=== PATIENT | male | born 1980 | race Caucasian/White ===

== ENCOUNTER 2018-10-09 11:05 | Inpatient (IN) | payer MEDICAID, OTHER ==
[~2018-10-09] VITALS: Ht 182.9 cm; Wt 88.2 kg
--- NOTE | 2018-10-09 11:36 | ERD ---
ER Documentation Chief Complaint Chief Complaint LOWER ABD PAIN WITH DIARRHEA NO BLOOD. VOMITING WITH NO BLOOD. HPI 38-year-old male with a history of hypertension and hyperthyroidism but noncompliant with medications resents presents to the ED complaining of a 1 day history of crampy, generalized, nonradiating abdominal pain with nausea and multiple episodes of watery, nonbloody, non-mucoid diarrhea. No hematemesis, hematochezia or melena. Denies chest pain or shortness of breath. No fevers or chills. Patient attributes his symptoms to something he ate last night but no other diners are ill. No recent travel or ill contacts. Patient complains of several month history of weight loss with intermittent palpitations, exertional dyspnea, malaise, heat intolerance and generalized weakness. ROS All systems reviewed and are negative except as per history of present illness. Medications Home Meds No Active Prescriptions or Reported Meds Allergies Allergies: Coded Allergies: No Known Allergy (Unverified , 10/09/18) PMhx/Soc History of Surgery: No Anesthesia Reaction: No Hx Neurological Disorder: No Hx Respiratory Disorders: No Hx Cardiac Disorders: Yes (Blood Pressure Assessment: Patient's blood pressure was elevated (>120/80) but appears stable without evidence of hypertension emergency or urgency. The patient was counseled about the risks of hypertension and urged to pursue outpatient monitoring and therapy within a week with their primary care physician.) Hx Psychiatric Problems: No Hx Miscellaneous Medical Probl: Yes (Hyperthyroidism) Hx Alcohol Use: Yes (6 pack/week) Hx Substance Use: No Hx Tobacco Use: No FmHx Diabetes and hypertension. No coronary artery disease or stroke Physical Exam Vitals Vital Signs Date Temp Pulse Resp B/P (MAP) Pulse Ox O2 O2 Flow FiO2 Time Delivery Rate 10/09/18 98.3 100 20 129/86 99 Room Air 16:33 (100) 10/09/18 97.9 126 20 132/74 99 Room Air 15:08 (93) 10/09/18 98.3 127 20 140/78 99 Room Air 12:55 (98) 10/09/18 99.9 145 24 149/100 99 11:08 (116) Physical Exam Const: Moderate distress. Head: Atraumatic Eyes: Normal Conjunctiva. Anicteric. ENT: Normal External Ears, Nose and Mouth. Neck: Full range of motion. No JVD. Pulsatile thyroid. Resp: Breath sounds are equal and clear to auscultation bilaterally Cardio: Tachycardic. Regular rate and rhythm, no murmurs Abd: Soft, mild, diffuse lower abdominal tenderness but no rebound or guarding. Non distended. Normal bowel sounds Skin: No petechiae or rashes Back: No midline or flank tenderness Ext: No cyanosis, or edema Neur: Awake and alert. No focal deficit. No tremors. Psych: Anxious but not depressed. Result Diagram: 10/09/18 1240 10/09/18 1240 Results 24 hrs Laboratory Tests Test 10/09/18 12:40 White Blood Count 13.1 10^3/ul Red Blood Count 5.23 10^6/ul Hemoglobin 13.9 g/dl Hematocrit 42.2 % Mean Corpuscular Volume 80.7 fl Mean Corpuscular Hemoglobin 26.6 pg Mean Corpuscular Hemoglobin Concent 32.9 g/dl Red Cell Distribution Width 13.2 % Platelet Count 332 10^3/UL Mean Platelet Volume 9.1 fl Immature Granulocytes % 0.500 % Neutrophils % 86.6 % Lymphocytes % 5.0 % Monocytes % 7.6 % Eosinophils % 0.0 % Basophils % 0.3 % Nucleated Red Blood Cells % 0.0 /100WBC Immature Granulocytes # 0.070 10^3/ul Neutrophils # 11.4 10^3/ul Lymphocytes # 0.7 10^3/ul Monocytes # 1.0 10^3/ul Eosinophils # 0.0 10^3/ul Basophils # 0.0 10^3/ul Nucleated Red Blood Cells # 0.0 10^3/ul Urine Color YELLOW Urine Clarity CLEAR Urine pH 7.0 Urine Specific [place] 1.021 Urine Ketones TRACE mg/dL Urine Nitrite NEGATIVE mg/dL Urine Bilirubin NEGATIVE mg/dL Urine Urobilinogen NEGATIVE mg/dL Urine Leukocyte Esterase NEGATIVE Simon/ul Urine Hemoglobin 1+ mg/dL Urine Glucose NEGATIVE mg/dL Urine Total Protein NEGATIVE mg/dl Sodium Level 143 mmol/L Potassium Level 3.8 mmol/L Chloride Level 104 mmol/L Carbon Dioxide Level 26 mmol/L Anion Gap 13 Blood Urea Nitrogen 17 mg/dl Creatinine 0.57 mg/dl Est Glomerular Filtrat Rate mL/min > 60 mL/min Glucose Level 116 mg/dl Calcium Level 10.4 mg/dl Total Bilirubin 0.8 mg/dl Direct Bilirubin 0.00 mg/dl Indirect Bilirubin 0.8 mg/dl Aspartate Amino Transf (AST/SGOT) 22 IU/L Alanine Aminotransferase (ALT/SGPT) 23 IU/L Alkaline Phosphatase 155 IU/L Total Protein 7.5 g/dl Albumin 4.3 g/dl Globulin 3.20 g/dl Albumin/Globulin Ratio 1.34 Lipase 41 U/L Thyroid Stimulating Hormone (TSH) < 0.015 MIU/L Free Thyroxine 6.33 ng/dl Urine Opiates Screen Positive Urine Barbiturates Negative Urine Amphetamines Screen Negative Urine Benzodiazepines Screen Negative Urine Cocaine Screen Negative Urine Cannabinoids Negative Current Medications Medications Dose Sig/Art Start Time Status Last (Trade) Ordered Route PRN Stop Time Admin Dose Reason Admin Morphine 4 mg ONCE STAT 10/09/18 DC 10/09/18 Sulfate IV 12:23 12:49 (morphine) 10/09/18 12:27 Ondansetron 4 mg ONCE STAT 10/09/18 DC 10/09/18 HCl (Zofran IV 12:23 12:49 Inj) 10/09/18 12:27 Lactated 1,000 ml @ Q1H ONCE 10/09/18 DC 10/09/18 Ringer's 1,000 mls/hr IV 12:30 12:49 10/09/18 13:29 IV Flush 10 ml STK-MED 10/09/18 DC 10/09/18 (NS 10 ml) ONCE .ROUTE 13:36 13:54 10/09/18 13:37 Sodium 100 ml @ ud STK-MED 10/09/18 DC 10/09/18 Chloride ONCE .ROUTE 13:36 13:54 10/09/18 13:37 Iohexol 150 ml STK-MED 10/09/18 DC 10/09/18 (Omnipaque ONCE .ROUTE 13:36 13:55 300mg/ ml) 10/09/18 13:37 Propranolol 40 mg ONCE ONCE 10/09/18 DC 10/09/18 HCl PO 15:00 15:15 (Inderal) 10/09/18 15:01 Ondansetron 4 mg ER BRIDGE 10/09/18 DC HCl (Zofran PRN IV 15:30 Inj) NAUSEA/VOMITI 10/09/18 15:38 NG 650 mg ER BRIDGE 10/09/18 DC Acetaminophen PRN PO 15:30 (Tylenol .MILD PAIN 10/09/18 15:38 Tab) 1-3 OR TEMP Ondansetron 4 mg Q6H PRN 10/09/18 HCl (Zofran IV 15:30 Inj) NAUSEA/VOMITI NG 650 mg Q6H PRN 10/09/18 Acetaminophen PO .PAIN 1-3 15:30 (Tylenol OR TEMP Tab) Sodium 1,000 ml @ Q1H ONCE 10/09/18 DC 10/09/18 Chloride 1,000 mls/hr IV 15:30 15:45 10/09/18 16:29 Methimazole 10 mg TID PO 10/09/18 10/09/18 (Tapazole) 16:00 21:12 Loperamide 2 mg QID PRN 10/09/18 10/09/18 HCl PO DIARRHEA 16:00 18:18 (Imodium Cap) Procedures/MDM DOCUMENTS REVIEWED: ED nurse, no prior records EKG: Time: 11:20. Sinus tachycardia. Ventricular rate 122. Normal NH QRS. LVH. Nonspecific T wave changes but no acute ST segment elevation or depres jai. No ectopy. My Interpretation IMAGING: PROCEDURE: CT abdomen and pelvis with contrast. CLINICAL INDICATION: Lower abdominal pain. Diarrhea. TECHNIQUE: CT scan of the abdomen and pelvis without contrast was performed and is reconstructed at 2.5 mm contiguous axial intervals from the dome of the diaphragm to the inferior pubic rami.. The patient was scanned without intravenous contrast. Sagittal and coronal reformatted images were obtained from the axial source images. The calculated radiation dose measures 615 mGy centimeters. The CTDI measures 9.4 mGy. Individualized dose optimization technique was used for the performance of this exam. This included 1. Automated exposure control. 2. Adjustment of the mA and / or kV according to the patient's size. 3. Use of iterative reconstructed technique. COMPARISON: None. FINDINGS: The lung bases are clear of any infiltrate or nodule. No effusion is seen. The liver is of normal size and contour with no mass or ductal dilatation. No gallstones are visualized. No splenic, adrenal or pancreatic abnormalities present. Kidneys enhance symmetrically and are of normal size and contour. No hydro nephrosis, calculus or solid masses seen. Noted is a 1 cm cyst on the lower pole of the left kidney. Ureters are of normal course and caliber with no stone. No bladder mass or stone is present. Prostate and seminal vesicles are normal. There is no aneurysm. No adenopathy is present. No bowel mass or obstruction is present. The appendix is normal. No phlegmon, ascites or pneumoperitoneum is visualized. The osseous structures are intact. IMPRESSION: No evidence of urolithiasis, obstructive uropathy, diverticulitis or appendicitis. Fatty liver. Left renal cyst. No further workup required. .Shay Nuno MD, MD Date Time Electronically viewed and signed by .Shay Nuno MD, on 10/09/2018 14:20 .A/ [employer]KIN-year-old male with a history of hypertension and hyperthyroidism but noncompliant with medications sent to the ED complaining of a 1 day history of crampy, generalized, now rating abdominal pain with nausea and multiple episodes of watery, nonbloody, non-mucoid diarrhea. Chemistry reveals mild leukocytosis but no anemia or thrombocytopenia. Chemistry negative for renal insufficiency, electrolyte abnormalities or hyperglycemia. Urinalysis is unremarkable. CT of the abdomen and pelvis with intravenous contrast pe rformed to evaluate for appendicitis, diverticulitis, abdominal aortic aneurysm, bowel obstruction, mass, obstructive uropathy and colitis reveals fatty liver and renal cyst but otherwise unremarkable for acute disease. EKG reveals sinus tachycardia but no ischemia or dysrhythmia. TSH is undetectable and free T4 is elevated consistent with hyperthyroidism. Abdominal exam is essentially benign without rebound, guarding or signs of peritonitis. Patient presents with signs and symptoms consistent with acute hyperthyroidism but no altered mental status or signs of thyroid storm. Treated with beta-blockers. Although gastroenteritis is considered patient's symptoms are likely secondary to h yperthyroidism. Admit to telemetry for further evaluation and management. CALLS/CONSULTS: Time: 14:54, Dr. Dr Jeff. Counseled patient and family regarding diagnosis, diagnostic results and plan for admission. Departure Diagnosis: Primary Impression: Acute generalized abdominal pain Additional Impressions: Hyperthyroidism Diarrhea Diarrhea type: unspecified type Qualified Codes: R19.7 - Diarrhea, unspecified Tachycardia Condition: Serious TAMMY,ELOY B. MD Oct 09, 2018 11:36
[2018-10-09] MEDS ORDERED: ONDANSETRON 4 MG INJ IV STA (12:23)
[2018-10-09] MEDS ORDERED: morphine 4 MG/ML VIAL IV STA (12:23)
[2018-10-09] MEDS ORDERED: LACTATED RINGER'S 1,000 ML IV ONE (12:30)
[2018-10-09] MEDS ORDERED: IOHEXOL 300MG/ML 150 ML BTL ONE (13:36)
[2018-10-09] MEDS ORDERED: SOD CHLORIDE 0.9% 100 ML ONE (13:36)
[2018-10-09] MEDS ORDERED: PROPRANOLOL 40 MG TAB PO ONE (15:00)
[2018-10-09] MEDS ORDERED: SOD CHLORIDE 0.9% 1,000 ML IV ONE (15:30)
[2018-10-09] MEDS ORDERED: ACETAMINOPHEN 325 MG TAB PO PRN ×2 (15:30)
[2018-10-09] MEDS ORDERED: ONDANSETRON 4 MG INJ IV PRN ×2 (15:30)
--- NOTE | 2018-10-09 15:59 | HP ---
Date/Time of Note Date/Time of Note DATE: 10/09/18 TIME: 15:36 Assessment/Plan VTE Prophylaxis SCD applied (from Nsg): Yes Pharmacological prophylaxis: NA/contraindicated Pharm contraindication: low risk/ambulating Lines/Catheters IV Catheter Type (from Nrsg): Saline Lock Assessment/Plan Assessment/Plan 38 yo man history of hyperthyroid presents with hyperthyroidism, diarrhea and vomiting. #Hyperthyroidism - Likely contributing to most of his symptoms. May have been decompensated by viral enterocolitis. - Likely Graves disease per history and exam, but no exophthalmos. Will check anti-TSH antibodies and thyroid US - Propranolol 40 BID, methimazole - On my exam appears hypovolemic even after LR bolus; will continue IV fluids. - Consulted Dr. Burt #Diarrhea #Vomiting - No recent hospitalizations or antibiotics, not immunosuppressed. No concern for C diff - Per history, likely viral enterocolitis - CT also negative - Will resume diet; zofran and imodium for symptoms. #Tachycardia - EKG reviewed; no ischemia, sinus tachy. Borderline for LV hypertrophy - Propranolol as above. DVT: SCDs GI: None Result Diagram: 10/09/18 1240 10/09/18 1240 HPI/ROS Admit Date/Time Admit Date/Time 09 October 2018 Hx of Present Illness Mr. Pereira is a 38 yo man with history of hyperthyroidism who presents with acute nausea, vomiting, and diarrhea; as well as chronic constitutional symptoms. He was in his usual state of health until 2 am the morning of admission. He woke up with moderate cramping abdominal pain and instantly went to the bathroom and had watery diarrhea. He says so far today he's had 25 episodes total of watery, small volume diarrhea without blood or mucous. Also nausea and vomited about 7 times total. He didn't eat anything unusual which may have caused food poisoning yesterday; had a bagel and lentils. About 3-4 years ago he was hospitalized at [facility] for several days for hyperthyroidism. He was discharged on propranolol and methimazole which he took for several months but stopped over 2 years ago. Over the last several months he now reports fatigue, increasing somnolence, 30 lb weight loss over 3 months, anorexia, heart palpitations on moderate exertion, and worsening heat intolerance and hot flashes for which he often has to take cold showers. In the ED he was tachy to 145, afebrile, BP 149/100. WBC 13.1, TSH undetectable, FT4 6.33. CT abdomen with fatty liver, otherwise unremarkable. Got propranolol 40mg x1 and LR bolus with improvement of heart rate. ROS Denies chills, night sweats. He DOES report occasional tension-type headache and R eye tearing. He denies dysphagia or odynophagia. He DOES have a noticeable neck mass which he says has not significantly changed over the past few months. Denies cough, dyspnea. Denies pleuritic stabbing chest pain. Denies hematemesis, melena, hematochezia. Denies dysuria Denies skin dryness or rashes. PMH/Family/Social Past Medical History Hyperthyroid as per HPI Medications Current Medications Ondansetron HCl (Zofran Inj) 4 mg ER BRIDGE PRN IV NAUSEA/VOMITING; Start 10/09/18 at 15:30; Stop 10/10/18 at 15:29 Acetaminophen (Tylenol Tab) 650 mg ER BRIDGE PRN PO .MILD PAIN 1-3 OR TEMP; Start 10/09/18 at 15:30; Stop 10/10/18 at 15:29 Coded Allergies: No Known Allergy (Unverified , 10/09/18) Past Surgical History Past Surgical Hx: no surgical history Family History Significant Family History: diabetes, hypertension, other (Mother recently diagnosed with either Lupus or Lymphoma) Social History Alcohol Use: occasionally (drinks about a 6 pack per week, sometimes less. ) Smoking Status: Never smoker Drug Use: none Exam/Review of Systems Vital Signs Vitals Vital Signs Date Temp Pulse Resp B/P (MAP) Pulse Ox O2 O2 Flow FiO2 Time Delivery Rate 10/09/18 97.9 126 20 132/74 99 Room Air 15:08 (93) Exam Exam Gen: Anxious appearing young man, well developed, pressured speech, lying in gurney. Eyes: PERRL, no icterus. No e/o exophthalmos. HEENT: Dry mucous membranes, clear oropharynx Neck: Pulsatile boggy thyroid. No JVD. Card: Tachycardia, 2/6 systolic murmur. Pulm: Clear to auscultation bilaterally Back: No CVA tenderness Abd: Mild tenderness to deep palpation of bilateral lower quadrants. Normoactive bowel sounds. Soft, nondistended; no palpable hepatosplenomegaly. Ext: No LE edema; palpable PT pulses bilaterally. Skin: Very warm and dry to the touch. WINTER AMARAL MD Oct 09, 2018 15:47
[2018-10-09] MEDS ORDERED: LOPERAMIDE 2 MG CAP PO PRN (16:00)
[2018-10-09 17:20] VITALS: BP 139/80; PULSE 103; RESP 17
[2018-10-09 17:58] VITALS: PULSE 104
[2018-10-09] MEDS ORDERED: DEXAMETHASONE 4 MG TAB PO ONE (18:00)
[2018-10-09] MEDS ORDERED: PROPYLTHIOURACIL 50 MG TAB PO ONE (18:00)
[2018-10-09] MEDS: METHIMAZOLE 5 MG TAB PO SCH ×2 (18:42→21:12)
[2018-10-09 20:00] VITALS: Ht 182.9 cm; Wt 88.2 kg
[2018-10-09 20:55] VITALS: BP 146/69; PULSE 92; RESP 18
[2018-10-09] MEDS: PROPRANOLOL 40 MG TAB PO SCH (21:11)
[2018-10-09] MEDS: CHOLESTYRAMINE 4 GM PACKET PO SCH (21:14)
[2018-10-09 23:03] VITALS: PULSE 102
[2018-10-10] VITALS (10 sets, daily range): BP systolic 136–151; BP diastolic 66–100; PULSE 69–93; RESP 16–18
[2018-10-10] MEDS: CHOLESTYRAMINE 4 GM PACKET PO SCH (08:09)
[2018-10-10] MEDS: METHIMAZOLE 5 MG TAB PO SCH ×2 (08:09→12:22)
[2018-10-10] MEDS: PROPRANOLOL 40 MG TAB PO SCH (08:10)
--- NOTE | 2018-10-10 12:45 | CONS ---
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 Is treated aggressively is improved quite remarkably. He can be treated as an outpatient as long as he is given prescriptions and can get his medications. Please note I would also advise him about being able to get his medications for less money using the [employer] website. That way we can verify he gets his medications and will smooth out. He will need to be on methimazole 20 mg twice daily and the propanolol for the time being. I would use propanolol for months. He will need to be on the methimazole for some time although ideally this is been a gentleman I would actually aim toward radioactive iodine ablation. If he does not have the radioactive iodine ablation then he is definitely can be on the methimazole for 18 months at least. Time to check his thyroid hormone levels will be in 6 weeks Qualifiers: Qualified Codes: E05.00 - Thyrotoxicosis with diffuse goiter without thyrotoxic crisis or storm (2) Graves disease Status: Chronic Comment: Without ophthalmopathy Consultation Date/Type/Reason Admit Date/Time 09 October 2018 Date of Consultation: Oct 10, 2018 Type of Consult Endocrinology Reason for Consultation Graves' disease presenting with thyroid storm Requesting Provider: WINTER AMARAL MD Date/Time of Note DATE: 10/10/18 TIME: 12:39 Hx of Present Illness This is the [facility] admission for this 38-year-old right-handed [place] born gentleman. He 3 years ago presented to the hospital with an 85 pound weight loss tremors palpitations fevers and was diagnosed with thyrotoxicosis. He was treated with methimazole at 10 mg twice daily and propanolol. He was on this for a year until he ran out of insurance. He has been off of treatment for 2 years. He comes into the hospital with fever tachycardia palpitations and multiple features consistent with low-grade thyroid storm. He was treated aggressively from the emergency room and overnight and has now significantly improved and is out of storm. Constitutional: no complaints (He was unaware of the fevers) Eyes: no complaints (He is not note the exophthalmos) Respiratory: no complaints Cardiovascular: palpitations Gastrointestinal: diarrhea Genitourinary: no complaints Musculoskeletal: no complaints Skin: no complaints Neurologic: no complaints Endocrine: other (Full symptoms consistent with thyrotoxicosis) Past Medical History Medical History: other (Graves' disease) Home Meds No Active Prescriptions or Reported Meds Medications Current Medications Ondansetron HCl (Zofran Inj) 4 mg Q6H PRN IV NAUSEA/VOMITING; Start 10/09/18 at 15:30 Acetaminophen (Tylenol Tab) 650 mg Q6H PRN PO .PAIN 1-3 OR TEMP; Start 10/09/18 at 15:30 Propranolol HCl (Inderal) 40 mg BID PO Last administered on 10/10/18at 08:10; Admin Dose 40 MG; Start 10/09/18 at 21:00 Methimazole (Tapazole) 10 mg TID PO Last administered on 10/10/18at 12:22; Admin Dose 10 MG; Start 10/09/18 at 16:00 Loperamide HCl (Imodium Cap) 2 mg QID PRN PO DIARRHEA Last administered on 10/09/18at 18:18; Admin Dose 2 MG; Start 10/09/18 at 16:00 Cholestyramine Resin (Questran) 1 pkt BID PO Last administered on 10/10/18 08:09; Admin Dose 1 PKT; Start 10/09/18 at 21:00 Allergies: Coded Allergies: No Known Allergy (Unverified , 10/09/18) Past Surgical History Past Surgical Hx: no surgical history Family History Significant Family History: no pertinent family hx Social History In [place] and raised there. He is lifting [employer] for 20 years. He is for 6 years and lives with his spouse and family. He works doing heavy duty landscape construction Alcohol Use: occasionally (drinks about a 6 pack per week, sometimes less. ) Smoking Status: Never smoker Drug Use: none Exam/Review of Systems Exam Vitals Vital Signs Date Temp Pulse Resp B/P (MAP) Pulse Ox O2 O2 Flow FiO2 Time Delivery Rate 10/10/18 86 12:03 10/10/18 98.7 16 141/75 96 11:43 (97) 10/10/18 Room Air 04:22 Intake and Output 10/09/18 10/09/18 10/10/18 1515:00 23:00 07:00 IntakeIntake Total 400 ml BalanceBalance 400 ml Constitutional: alert, oriented Psych: anxiety Head: normocephalic, atraumatic Eyes: nl conjunctiva, EOMI, nl lids, nl sclera, PERRL, other (Exophthalmos 4 mm on the right 3 mm on the left) ENMT: nl external ears & nose, nl lips & teeth, nl nasal mucosa & septum, mucosa pink and moist Neck: supple, non-tender, thyromegaly (Few smooth thyromegaly with a venous hum) Respiratory: clear to auscultation, normal air movement Cardiovascular: regular rate and rhythm, nl pulses Gastrointestinal: soft, nl liver, spleen, non-tender Extremities: normal pulses Neurological: LINING STRAP CLOSER II-XII intact, nl mental status, nl speech, nl strength Skin: nl turgor Results Result Diagram: 10/10/18 0549 10/10/18 0551 Results 24hrs Laboratory Tests Test 10/09/18 12:40 10/10/18 05:49 10/10/18 05:51 White Blood Count 13.1 H 8.0 # Red Blood Count 5.23 4.79 Hemoglobin 13.9 L 12.6 L Hematocrit 42.2 38.8 L Mean Corpuscular Volume 80.7 L 81.0 L Mean Corpuscular Hemoglobin 26.6 L 26.3 L Mean Corpuscular Hemoglobin Concent 32.9 32.5 Red Cell Distribution Width 13.2 13.4 Platelet Count 332 308 Mean Platelet Volume 9.1 9.7 Immature Granulocytes % 0.500 H 0.100 Neutrophils % 86.6 H 87.3 H Lymphocytes % 5.0 L 10.1 L Monocytes % 7.6 2.4 Eosinophils % 0.0 0.0 Basophils % 0.3 0.1 Nucleated Red Blood Cells % 0.0 0.0 Immature Granulocytes # 0.070 H 0.010 Neutrophils # 11.4 H 7.0 Lymphocytes # 0.7 L 0.8 Monocytes # 1.0 H 0.2 L Eosinophils # 0.0 0.0 Basophils # 0.0 0.0 Nucleated Red Blood Cells # 0.0 0.0 Urine Color YELLOW Urine Clarity CLEAR Urine pH 7.0 Urine Specific [place] 1.021 Urine Ketones TRACE A Urine Nitrite NEGATIVE Urine Bilirubin NEGATIVE Urine Urobilinogen NEGATIVE Urine Leukocyte Esterase NEGATIVE Urine Hemoglobin 1+ H Urine Glucose NEGATIVE Urine Total Protein NEGATIVE Sodium Level 143 141 Potassium Level 3.8 3.8 Chloride Level 104 105 Carbon Dioxide Level 26 23 Anion Gap 13 13 Blood Urea Nitrogen 17 20 Creatinine 0.57 L 0.54 L Est Glomerular Filtrat Rate mL/min > 60 > 60 Glucose Level 116 167 Calcium Level 10.4 H 9.4 Total Bilirubin 0.8 Direct Bilirubin 0.00 Indirect Bilirubin 0.8 Aspartate Amino Transf (AST/SGOT) 22 Alanine Aminotransferase (ALT/SGPT) 23 Alkaline Phosphatase 155 H Total Protein 7.5 Albumin 4.3 Globulin 3.20 Albumin/Globulin Ratio 1.34 Lipase 41 Thyroid Stimulating Hormone (TSH) < 0.015 L Free Thyroxine 6.33 H 5.33 H Urine Opiates Screen Positive Urine Barbiturates Negative Urine Amphetamines Screen Negative Urine Benzodiazepines Screen Negative Urine Cocaine Screen Negative Urine Cannabinoids Negative Hemoglobin A1c 5.5 Phosphorus Level 4.9 Magnesium Level 1.8 Medications Medication Current Medications Ondansetron HCl (Zofran Inj) 4 mg Q6H PRN IV NAUSEA/VOMITING; Start 10/09/18 at 15:30 Acetaminophen (Tylenol Tab) 650 mg Q6H PRN PO .PAIN 1-3 OR TEMP; Start 10/09/18 at 15:30 Propranolol HCl (Inderal) 40 mg BID PO Last administered on 10/10/18 08:10; Admin Dose 40 MG; Start 10/09/18 at 21:00 Methimazole (Tapazole) 10 mg TID PO Last administered on 10/10/18 12:22; Admin Dose 10 MG; Start 10/09/18 at 16:00 Loperamide HCl (Imodium Cap) 2 mg QID PRN PO DIARRHEA Last administered on 10/09/18 18:18; Admin Dose 2 MG; Start 10/09/18 at 16:00 Cholestyramine Resin (Questran) 1 pkt BID PO Last administered on 10/10/18 08:09; Admin Dose 1 PKT; Start 10/09/18 at 21:00 VINNIE FERRER MD Oct 10, 2018 12:45
[2018-10-10] MEDS ORDERED: FERROUS SULFATE (EC) 325 MG TAB PO ONE (13:00)
[2018-10-10] MEDS ORDERED: DEXAMETHASONE 4 MG TAB PO ONE (14:00)
[2018-10-10] MEDS ORDERED: METH10TA5 PO (16:06)
[2018-10-10] MEDS ORDERED: QUESTRAN PO (16:06)
[2018-10-10] MEDS ORDERED: PROP40TA4 PO (16:06)
--- NOTE | 2018-10-10 16:08 | PDOCDIS ---
Discharge Instructions CONDITION [id number] Patient Condition: [id number] Stable FOLLOW UP/APPOINTMENTS Follow-up Plan Please continue medications as directed by milieu technician while in the hosp ital. Please follow-up with milieu technician or primary care provider as soon as possible. Please get a repeat thyroid blood test within 6 weeks. MAGGIE BROWN Oct 10, 2018 16:08
--- NOTE | 2018-10-10 16:10 | DS ---
Date/Time of Note Date/Time of Note DATE: 10/10/18 TIME: 16:10 Discharge Summary Admission/Discharge Info Admit Date/Time Oct 09, 2018 at 17:00 Discharge Date/Time Patient Condition: Stable Hospital Course Patient is a male with a past medical history significant for hyperthyroidism who presents to [facility] for symptoms of possible thyrotoxicosis. Patient was seen by boxing instructor immediately and placed on appropriate medications. Patient had workup done including antibody blood test which is not back yet as well as ultrasound. Per endocrinology at this time patient is stable for discharge with appropriate prescriptions and patient will get prescriptions no matter what the cause as he knows the importance of the present medications now. The patient feeling well and with no acute complaints at this time and will be discharged to follow-up with a primary care provider or an boxing instructor as soon as possible. Discharge diagnosis Thyrotoxicosis without thyroid storm Graves' disease Tachycardia, resolved Nausea, vomiting, diarrhea, resolved Home Meds Active Scripts Methimazole* (Methimazole*) 10 Mg Tablet, 20 MG PO BID, #120 TAB 3 Refills Prov:MAGGIE BROWN 10/10/18 Propranolol Hcl* (Propranolol Hcl*) 40 Mg Tablet, 40 MG PO BID for 30 Days, #60 TAB 3 Refills Prov:MAGGIE BROWN 10/10/18 Cholestyramine* (Questran*) 1 Pkt Susp, 1 PKT PO BID for 6 Days, #6 Prov:MAGGIE BROWN 10/10/18 Follow-up Plan Please continue medications as directed by boxing instructor while in the hospital. Please follow-up with boxing instructor or primary care provider as soon as possible. Please get a repeat thyroid blood test within 6 weeks. Primary Care Provider Care Physician No Primary Time spent on discharge: > 30 minutes Pending Labs Laboratory Tests Test 10/10/18 05:49 10/10/18 05:51 White Blood Count 8.0 10^3/ul (4.8-10.8) Red Blood Count 4.79 10^6/ul (4.70-6.10) Hemoglobin 12.6 g/dl (14.0-18.0) Hematocrit 38.8 % (42.0-52.0) Mean Corpuscular Volume 81.0 fl (82.0-101.0) Mean Corpuscular Hemoglobin 26.3 pg (29.0-33.0) Mean Corpuscular 32.5 g/dl (32.0-37.0) Hemoglobin Concent Red Cell Distribution Width 13.4 % (11.5-14.5) Platelet Count 308 10^3/UL (140-415) Mean Platelet Volume 9.7 fl (7.4-10.4) Immature Granulocytes % 0.100 % (0.001-0.429) Neutrophils % 87.3 % (39.0-77.0) Lymphocytes % 10.1 % (15.0-51.0) Monocytes % 2.4 % (0.0-11.0) Eosinophils % 0.0 % (0.0-7.0) Basophils % 0.1 % (0.0-2.0) Nucleated Red Blood Cells % 0.0 /100WBC (0.0-0.0) Immature Granulocytes # 0.010 10^3/ul (0.0-0.031) Neutrophils # 7.0 10^3/ul (1.6-7.5) Lymphocytes # 0.8 10^3/ul (0.8-2.9) Monocytes # 0.2 10^3/ul (0.3-0.9) Eosinophils # 0.0 10^3/ul (0.0-0.5) Basophils # 0.0 10^3/ul (0.0-0.1) Nucleated Red Blood Cells # 0.0 10^3/ul (0.0-0.0) Sodium Level 141 mmol/L (135-144) Potassium Level 3.8 mmol/L (3.5-5.1) Chloride Level 105 mmol/L (97-110) Carbon Dioxide Level 23 mmol/L (21-31) Anion Gap 13 (5-13) Blood Urea Nitrogen 20 mg/dl (7-20) Creatinine 0.54 mg/dl (0.61-1.24) Est Glomerular Filtrat > 60 mL/min (>60) Rate mL/min Glucose Level 167 mg/dl (70-220) Hemoglobin A1c 5.5 % (0-5.9) Calcium Level 9.4 mg/dl (8.4-10.2) Phosphorus Level 4.9 mg/dl (2.5-4.9) Magnesium Level 1.8 mg/dl (1.7-2.5) Free Thyroxine 5.33 ng/dl (0.79-2.35) MAGGIE BROWN Oct 10, 2018 16:10
[2018-10-10] MEDS ORDERED: METHIMAZOLE 5 MG TAB PO SCH (21:00)
== END 2018-10-10 17:13 | disposition home or self-care (01) | DRG 645 ==
LOC: E/R 11:05 → TEL 17:00
PROVIDERS: ADMIT Internal Medicine; ATTEND Internal Medicine
DX: E05.00 Thyrotoxicosis with diffuse goiter without thyrotoxic crisis or storm (principal); Z91.14 Patient's other noncompliance with medication regimen; A08.4 Viral intestinal infection, unspecified
CPT/HCPCS: 36415; 74177; 76536; 80048; 80053; 80307; 81001; 83036; 83690; 83735; 84100; 84235; 84439; 84443; 85025; 93005; 96374; 96375; J2270; J2405; J7030; J7120; Q9967